=== PATIENT | male | born 1950 | race Two or more races ===

== ENCOUNTER 2021-07-02 07:00 | Day surgery (SDC) | payer OTHER ==
[~2021-07-02] VITALS: Ht 185.4 cm; Wt 70.3 kg
[~2021-07-02 07:00] MED LIST: ATEN-60 PO; VIBE75TA PO
[2021-07-02] MEDS ORDERED: ceFAZolin 1GM/50ML 100 ML IV ONE (08:19)
[2021-07-02] MEDS ORDERED: MEPERIDINE HCL (25 MG/ML) 1ML VIAL ONE ×2 (09:26→11:52)
[2021-07-02] MEDS ORDERED: MIDAZOLAM HCL 2MG/2ML 2ml VIAL (1mg/ml) ONE (09:27)
[2021-07-02] MEDS ORDERED: fentaNYL CITRATE 100 MCG/2 ML VL ONE (09:27)
[2021-07-02] MEDS ORDERED: DexAMETHasone SOD PHOS 10MG/1ML VIAL INJ ONE (09:52)
[2021-07-02] MEDS ORDERED: PROPOFOL 10 MG/ML 20 ML IV ONE (09:52)
[2021-07-02] MEDS ORDERED: ePHEDrine SULFATE 50 MG/ML AMP IV PRN (10:00)
[2021-07-02] MEDS ORDERED: HYDROmorphone HCL 2 MG/ML VL/or syr IV PRN (10:00)
[2021-07-02] MEDS ORDERED: LABETALOL HCL 5 MG/ML 4ML SYRINGE IV PRN (10:00)
[2021-07-02] MEDS ORDERED: ONDANSETRON HCL 4 MG/2 ML VIAL IV PRN (10:00)
[2021-07-02] MEDS ORDERED: MIDAZOLAM HCL 2MG/2ML 2ml VIAL (1mg/ml) IV PRN (10:00)
[2021-07-02] MEDS ORDERED: MORPHINE SULFATE 4 MG/ML SYR/VIAL IV PRN (10:00)
[2021-07-02] MEDS ORDERED: MORPHINE SULFATE INJ 2 MG/ml SYRG IV ONE (11:03)
[2021-07-02] MEDS ORDERED: MEPERIDINE HCL (25 MG/ML) 1ML VIAL IV ONE ×2 (11:53→12:00)
[2021-07-02] MEDS ORDERED: BELLADONNA ALKAL/OPIUM (16.2/30MG) RECT SUPP PR ONE ×3 (12:15→12:35)
[2021-07-02 12:41] VITALS: BP 123/82
[2021-07-03] MEDS ORDERED: NITR-87 PO (16:52)
== END 2021-07-02 12:50 | disposition home or self-care (01) ==
LOC: SUR 07:00
PROVIDERS: ATTEND Urology
DX: C67.9 Malignant neoplasm of bladder, unspecified (principal); N32.81 Overactive bladder; I10 Essential (primary) hypertension; M19.90 Unspecified osteoarthritis, unspecified site; Z88.5 Allergy status to narcotic agent; Z80.8 Family history of malignant neoplasm of other organs or systems; Z82.49 Family history of ischemic heart disease and other diseases of the circulatory system; Z98.890 Other specified postprocedural states; Z79.899 Other long term (current) drug therapy; Z20.822 Contact with and (suspected) exposure to COVID-19; Z87.891 Personal history of nicotine dependence
CPT/HCPCS: 52240; 88305; J0690; J1100; J1170; J2175; J2250; J2270; J2704; J3010; U0003

== ENCOUNTER 2021-07-03 00:20 | Emergency (ER) | payer OTHER ==
[~2021-07-03] VITALS: Ht 185.4 cm; Wt 70.3 kg
[2021-07-03 01:43] VITALS: BP 110/64
[2021-07-03] MEDS ORDERED: NITR-87 PO (16:52)
== END 2021-07-03 01:48 | disposition home or self-care (01) ==
LOC: ER 00:20
DX: R10.30 Lower abdominal pain, unspecified (principal); Z79.899 Other long term (current) drug therapy; Z88.5 Allergy status to narcotic agent
CPT/HCPCS: 74176

== ENCOUNTER 2021-07-03 15:28 | Emergency (ER) | payer OTHER ==
[~2021-07-03] VITALS: Ht 185.4 cm; Wt 70.3 kg
[2021-07-03 16:30] VITALS: BP 116/72
[2021-07-03 16:37] LABS: Urine Bacteria FEW /hpf (None Seen); Urine Blood 3+ /uL (Negative); Urine Specific Gravity 1.008 (1.001-1.035); Urine WBC 78 /hpf (0 - 3)
[2021-07-03] MEDS ORDERED: NITR-87 PO (16:52)
== END 2021-07-03 16:36 | disposition home or self-care (01) ==
LOC: ER 15:28
DX: R33.9 Retention of urine, unspecified (principal); Z88.6 Allergy status to analgesic agent
CPT/HCPCS: 51702; 81001

== ENCOUNTER → 2022-02-07 | Day surgery (SDC) | payer OTHER ==
[~2022-02-07] VITALS: Ht 185.4 cm; Wt 70.3 kg
[~2022-02-07] MED LIST changes: +BUPIVACAINE 0.5% P/F INJ 10 ML VIAL ONE; +CIPROFLOXACIN 400MG/200ML 200 ML IV ONE; +DexAMETHasone SOD PHOS 10MG/1ML VIAL INJ IV ONE; +HYDROmorphone HCL 2 MG/ML VL/or syr IV PRN; +METOCLOPRAMIDE HCL 5MG/ml INJ 2ml VIAL IV PRN; +MIDAZOLAM HCL 2MG/2ML 2ml VIAL (1mg/ml) ONE; +MORPHINE SULFATE 4 MG/ML SYR/VIAL IV PRN; +ONDANSETRON HCL 4 MG/2 ML VIAL ONE; +PROPOFOL 10 MG/ML 20 ML IV ONE; +SODIUM CHLORIDE LOCK 10 ML ONE; -VIBE75TA PO; +fentaNYL CITRATE 100 MCG/2 ML VL ONE; +mitoMYcin 40 MG in STERILE WATER 60 ML IS ONE
[2022-02-07 12:15] VITALS: BP 110/68
== END | disposition home or self-care (01) ==
LOC: SUR 07:51
PROVIDERS: ATTEND Urology
DX: C67.1 Malignant neoplasm of dome of bladder (principal); C67.4 Malignant neoplasm of posterior wall of bladder; J44.9 Chronic obstructive pulmonary disease, unspecified; I10 Essential (primary) hypertension; Z79.890 Hormone replacement therapy; Z79.899 Other long term (current) drug therapy; Z90.49 Acquired absence of other specified parts of digestive tract; Z87.891 Personal history of nicotine dependence; Z20.822 Contact with and (suspected) exposure to COVID-19
CPT/HCPCS: 51720; 52234; 88305; J0744; J1100; J2250; J2405; J2704; J3010; J3490; J9280; U0003

== ENCOUNTER 2022-02-12 02:43 | Emergency (ER) | payer OTHER ==
[~2022-02-12] VITALS: Ht 185.4 cm; Wt 70.5 kg
[~2022-02-12 02:43] MED LIST changes: -BUPIVACAINE 0.5% P/F INJ 10 ML VIAL ONE; -CIPROFLOXACIN 400MG/200ML 200 ML IV ONE; -DexAMETHasone SOD PHOS 10MG/1ML VIAL INJ IV ONE; -HYDROmorphone HCL 2 MG/ML VL/or syr IV PRN; -METOCLOPRAMIDE HCL 5MG/ml INJ 2ml VIAL IV PRN; -MIDAZOLAM HCL 2MG/2ML 2ml VIAL (1mg/ml) ONE; -MORPHINE SULFATE 4 MG/ML SYR/VIAL IV PRN; -ONDANSETRON HCL 4 MG/2 ML VIAL ONE; -PROPOFOL 10 MG/ML 20 ML IV ONE; -SODIUM CHLORIDE LOCK 10 ML ONE; -fentaNYL CITRATE 100 MCG/2 ML VL ONE; -mitoMYcin 40 MG in STERILE WATER 60 ML IS ONE
[2022-02-12 07:58] VITALS: BP 127/87
== END 2022-02-12 09:30 | disposition home or self-care (01) ==
LOC: ER 02:43
DX: R31.9 Hematuria, unspecified (principal); I10 Essential (primary) hypertension; Z46.6 Encounter for fitting and adjustment of urinary device; Z90.49 Acquired absence of other specified parts of digestive tract; Z88.6 Allergy status to analgesic agent
CPT/HCPCS: 51702; 74176

== ENCOUNTER 2022-06-20 07:38 | Day surgery (SDC) | payer OTHER ==
[~2022-06-20] VITALS: Ht 185.4 cm; Wt 70.3 kg
[~2022-06-20 07:38] MED LIST changes: +ATE50T PO; -ATEN-60 PO; +LEV50T PO; +PSYL0.524 PO; +mitoMYcin 40 MG in STERILE WATER 60 ML IS ONE
[2022-06-20] MEDS ORDERED: NEOSTIGMINE 1 MG/ML INJ (10mg/10ML VIAL) IV ONE (07:39)
[2022-06-20] MEDS ORDERED: GLYCOPYRROLATE 0.2 MG/ML 1ML VIAL IV ONE (07:39)
[2022-06-20] MEDS ORDERED: mitoMYcin 40 MG in STERILE WATER 80 ML IS ONE (08:30)
[2022-06-20] MEDS ORDERED: CIPROFLOXACIN 400MG/200ML 200 ML IV ONE (08:30)
[2022-06-20] MEDS ORDERED: ROCURONIUM 10MG/ML 10ML VIAL IV ONE (09:19)
[2022-06-20] MEDS ORDERED: fentaNYL CITRATE 100 MCG/2 ML VL ONE (09:19)
[2022-06-20] MEDS ORDERED: MIDAZOLAM HCL 2MG/2ML 2ml VIAL (1mg/ml) ONE (09:19)
[2022-06-20] MEDS ORDERED: PROPOFOL 10 MG/ML 20 ML IV ONE (09:27)
[2022-06-20] MEDS ORDERED: ONDANSETRON HCL 4 MG/2 ML VIAL ONE (09:27)
[2022-06-20] MEDS ORDERED: LIDOCAINE 2% (LOCAL ANESTH.) PF 5ml SDV ONE (09:27)
[2022-06-20] MEDS ORDERED: ONDANSETRON HCL 4 MG/2 ML VIAL IV PRN (11:00)
[2022-06-20] MEDS ORDERED: MORPHINE SULFATE INJ 2 MG/ml SYRG IV PRN (11:00)
[2022-06-20 11:25] VITALS: BP 108/67
== END 2022-06-20 11:34 | disposition home or self-care (01) ==
LOC: SUR 07:38
PROVIDERS: ATTEND Urology
DX: C67.9 Malignant neoplasm of bladder, unspecified (principal); M19.90 Unspecified osteoarthritis, unspecified site; F32.9 Major depressive disorder, single episode, unspecified; I10 Essential (primary) hypertension; E07.9 Disorder of thyroid, unspecified; J44.9 Chronic obstructive pulmonary disease, unspecified; K21.9 Gastro-esophageal reflux disease without esophagitis; Z88.6 Allergy status to analgesic agent; Z79.891 Long term (current) use of opiate analgesic; Z80.9 Family history of malignant neoplasm, unspecified; Z82.49 Family history of ischemic heart disease and other diseases of the circulatory system; Z87.891 Personal history of nicotine dependence; Z90.49 Acquired absence of other specified parts of digestive tract; Z79.890 Hormone replacement therapy; Z79.899 Other long term (current) drug therapy; Z98.890 Other specified postprocedural states
CPT/HCPCS: 52240; J0744; J2001; J2250; J2405; J2704; J3010; J9280